=== PATIENT | female | born 1935 | race Caucasian/White ===

== ENCOUNTER 2017-08-19 14:15 | Emergency (ER) | payer MEDICARE, OTHER ==
[~2017-08-19] VITALS: Ht 157.5 cm; Wt 68.2 kg
[2017-08-19] MEDS ORDERED: QUET100T PO (14:33)
[2017-08-19] MEDS ORDERED: ATOR20TA86 PO (14:33)
[2017-08-19] MEDS ORDERED: ALEN10 PO (14:33)
[2017-08-19] MEDS ORDERED: INSU100V SQ (14:33)
[2017-08-19] MEDS ORDERED: DULO60CA44 PO (14:33)
[2017-08-19] MEDS ORDERED: LISI-662 PO (14:33)
[2017-08-19] MEDS ORDERED: SITA100 PO (14:33)
[2017-08-19] MEDS ORDERED: METF500T4 PO (14:33)
[2017-08-19] MEDS ORDERED: TAMS0.4C32 PO (14:33)
[2017-08-19] MEDS ORDERED: LANS30 PO (14:33)
[2017-08-19] MEDS ORDERED: RISP1 PO (14:33)
[2017-08-19] MEDS ORDERED: INSLAN SQ (14:33)
[2017-08-19] MEDS ORDERED: CALC-1194 PO (14:33)
[2017-08-19 14:37] LABS: GLUCOSE,POINT OF CARE 103 MG/DL (70-110)
[2017-08-19] MEDS ORDERED: LORazepam 1 MG TABLET PO ONE (16:15)
[2017-08-19 16:23] LABS: BASOPHILS # (AUTO) 0.06 K/uL (0.00-0.20); BASOPHILS % (AUTO) 0.5 % (0.0-2.0); EOSINOPHILS # (AUTO) 0.02 K/uL (0.00-0.70); EOSINOPHILS % (AUTO) 0.14 % (1.0-6.0); HEMATOCRIT 36.9 % (36-46); HEMOGLOBIN 12.1 g/dL (12.0-16.0); LYMPHOCYTES # (AUTO) 1.1 K/uL (1.0-4.8); LYMPHOCYTES % (AUTO) 8.5 % (22.0-44.0); MEAN CORPUSCULAR HEMOGLOBIN 28.1 pg (26.0-34.0); MEAN CORPUSCULAR HGB CONC 32.7 G/dL (31.0-37.0); MEAN CORPUSCULAR VOLUME 86 fL (80-100); MONOCYTES # (AUTO) 0.7 K/uL (0.1-1.0); MONOCYTES % (AUTO) 5.6 % (2.0-9.0); PLATELET COUNT (AUTO) 286 K/uL (150-450); RED BLOOD CELL COUNT(AUTO) 4.29 MIL/uL (4.00-5.20); WHITE BLOOD COUNT (AUTO) 12.9 K/uL (4.5-11.0)
[2017-08-19 16:24] LABS: NEUTROPHILS % (AUTO) 85.4 % (40.0-70.0)
[2017-08-19 16:36] LABS: ANION GAP 13 mmol/L (8-16); CALCIUM, TOTAL 9.3 mg/dL (8.8-10.5); CARBON DIOXIDE 24 mmol/L (22-29); CHLORIDE 105 mmol/L (98-107); CREATININE 1.07 mg/dL (0.60-1.30); GLOMERULAR FILTR. RATE CALC 49 mL/min (>60); POTASSIUM 5.2 mmol/L (3.5-5.1); SODIUM SERUM 142 mmol/L (136-145); UREA NITROGEN, BLOOD 29 mg/dL (7-18)
[2017-08-19 16:41] LABS: ALANINE AMINOTRANSFERASE 17 U/L (12-78); ALBUMIN 3.8 g/dL (3.4-5.0); ASPARTATE AMINOTRANSFERASE 13 U/L (15-37); BILIRUBIN,TOTAL 0.2 mg/dL (0.1-1.0); TOTAL PROTEIN, SERUM 8.3 g/dL (6.4-8.2)
[2017-08-19 18:28] LABS: APPEARANCE,URINE CLOUDY (CLEAR); GLUCOSE, URINE (UA) NEGATIVE (NEGATIVE); KETONES,URINE NEGATIVE (NEGATIVE); LEUKOCYTE ESTERASE ,URINE NEGATIVE (NEGATIVE); OCCULT BLOOD,URINE NEGATIVE (NEGATIVE); PROTEIN,URINE NEGATIVE (NEGATIVE)
[2017-08-19 18:29] LABS: ADD UA MICROSCOPIC YES
[2017-08-19 18:44] LABS: RBC,URINE None Seen /HPF (0-2); SQUAMOUS EPITHELIAL CELL,UR Few /LPF (None Seen); WBC,URINE 0-2 /HPF (0-5)
[2017-08-19 19:43] VITALS: BP 141/74
== END 2017-08-19 19:51 | disposition home or self-care (01) ==
LOC: EMS 14:18
DX: F91.9 Conduct disorder, unspecified (principal); I10 Essential (primary) hypertension; F03.90 Unspecified dementia, unspecified severity, without behavioral disturbance, psychotic disturbance, mood disturbance, and anxiety; E11.9 Type 2 diabetes mellitus without complications; K21.9 Gastro-esophageal reflux disease without esophagitis; Z79.4 Long term (current) use of insulin
CPT/HCPCS: 36415; 80053; 80307; 81001; 82962; 85025; 87086; 87147; 99284; G0480